=== PATIENT | female | born 1935 | race Caucasian/White ===

== ENCOUNTER → 2016-12-27 | Outpatient (CLI) | payer MEDICARE, BC ==
[~2016-12-27] MED LIST: AMBIEN 5MG TABLE5 MG PO; BENADRYL50 MG PO; CALCIUM CITRATE1 TA1 PO; CEFTIN 250250 MG/TAB PO; CYANOCOBAL1000 MCG/2 IM; DIFLUCAN 100MG100 MG PO; FLEXERIL 1010 MG/TAB PO; FLONASE NASAL S16 GM NS; FOLIC ACID 11 MG/TA1 PO; LIPITOR20 MG PO; NAPROSYN500 MG PO; NORCO 325 MG-7.1 TAB PO; OYSCO 500500 M1 PO; PLAQUENIL 200M200 MG PO; PREDNISONE20 MG PO; PRILOSEC 20MG20 MG PO; PROAIR HFA0.09 MG/AC IH; PROBIOTIC FORMU1 CAP PO; PROLIA60 MG/ML SC; RELPAX 40MG TAB40 MG PO; RT ADVAIR 528 DISKUS IH; SINGULAIR 110 MG/TAB PO; SYNTHROID0.075 MG/T PO; TOPROL XL100 MG PO; TYLENOL EXTRA500 M1 PO; ULTRAM 50MG TAB50 MG PO; ZOFRAN 4MG T4 MG/TAB PO
[2016-12-27 10:37] LABS: ADJUSTED CALCIUM 10.4 mg/dL (8.4-10.2); ALBUMIN 4.2 gm/dL (3.5-5.0); BASO # 0.1 (0.0-0.2); BASO % 0.9 % (0.0-2.0); BILIRUBIN,TOTAL 0.8 mg/dL (0.0-1.0); CALCIUM 10.6 mg/dL (8.4-10.2); CREATININE, serum 0.91 mg/dL (0.52-1.25); EOS # 0.2 (0.0-0.7); EOS % 4.4 % (0-4.0); GRAN # 3.4 (1.4-6.5); GRAN % 62.5 % (42.2-75.2); LYMPH # 1.3 (1.2-3.4); LYMPH % 23.2 % (20.0-51.0); MEAN CELL VOLUME 98 fl (80.0-100.0); MEAN CORPUSCULAR HGB CONC 32 g/dl (33.0-37.0); MEAN PLATELET VOLUME 9.8 fl (7.4-10.4); MONO # 0.5 (0.1-0.6); MONO % 8.8 % (1.7-9.3); PLATELET COUNT 203 K/mm3 (130-400); POTASSIUM 5.1 mmol/L (3.4-5.0); RED BLOOD COUNT 3.68 M/mm3 (4.10-5.30); REDCELL DISTRIBUTION WIDTH-CV 13.2 % (11.5-14.5); TOTAL PROTEIN 7.2 gm/dL (6.4-8.2); WHITE BLOOD COUNT 5.5 K/mm3 (4.8-10.8)
[2016-12-27 10:39] LABS: HEMATOCRIT 36.2 % (37.0-47.0); HEMOGLOBIN 11.7 g/dl (12.5-16.0); MEAN CORPUSCULAR HEMOGLOBIN 32 pg (27.0-31.0)
[2016-12-27 11:16] LABS: THYROID STIMULATING HORMONE 1.23 uIU/mL (0.465-4.680)
== END ==
LOC: COL.LAB 09:02
PROVIDERS: Internal Medicine
DX: D53.8 Other specified nutritional anemias (principal); E78.2 Mixed hyperlipidemia; E03.8 Other specified hypothyroidism; I10 Essential (primary) hypertension

== ENCOUNTER → 2018-01-23 | Outpatient (CLI) | payer MEDICARE, BC ==
[2018-01-23 09:25] LABS: BASO % 0.6 % (0.0-2.0); EOS # 0.2 (0.0-0.7); EOS % 2.6 % (0-4.0); GRAN # 4.7 (1.4-6.5); GRAN % 69.7 % (42.2-75.2); HEMOGLOBIN 10.9 g/dl (12.5-16.0); LYMPH # 1.2 (1.2-3.4); LYMPH % 17.3 % (20.0-51.0); MEAN CELL VOLUME 97 fl (80.0-100.0); MEAN CORPUSCULAR HEMOGLOBIN 31 pg (27.0-31.0); MEAN CORPUSCULAR HGB CONC 32 g/dl (33.0-37.0); MEAN PLATELET VOLUME 10.3 fl (7.4-10.4); MONO # 0.6 (0.1-0.6); MONO % 9.5 % (1.7-9.3); PLATELET COUNT 162 K/mm3 (130-400); RED BLOOD COUNT 3.47 M/mm3 (4.10-5.30); REDCELL DISTRIBUTION WIDTH-CV 13.2 % (11.5-14.5)
[2018-01-23 09:26] LABS: HEMATOCRIT 33.7 % (37.0-47.0)
[2018-01-23 09:38] LABS: ALBUMIN 3.6 gm/dL (3.5-5.0); BILIRUBIN,TOTAL 0.5 mg/dL (0.0-1.0); CALCIUM 10.3 mg/dL (8.4-10.2); CHOLESTEROL RISK RATIO 2.2; CREATININE, serum 0.81 mg/dL (0.52-1.25); POTASSIUM 4.6 mmol/L (3.4-5.0); TOTAL PROTEIN 7.1 gm/dL (6.4-8.2)
[2018-01-23 10:08] LABS: THYROID STIMULATING HORMONE 1.41 uIU/mL (0.465-4.680)
== END ==
LOC: COL.LAB 08:40
PROVIDERS: Internal Medicine
DX: I10 Essential (primary) hypertension (principal); E78.2 Mixed hyperlipidemia; E03.9 Hypothyroidism, unspecified

== ENCOUNTER → 2018-07-14 | Outpatient (CLI) | payer MEDICARE, BC ==
[2018-07-14 10:39] LABS: BASO # 0.1 (0.0-0.2); BASO % 0.7 % (0.0-2.0); EOS # 0.1 (0.0-0.7); EOS % 2.1 % (0-4.0); GRAN # 4.7 (1.4-6.5); GRAN % 68.5 % (42.2-75.2); HEMATOCRIT 36.1 % (37.0-47.0); HEMOGLOBIN 11.9 g/dl (12.5-16.0); LYMPH # 1.4 (1.2-3.4); LYMPH % 20.8 % (20.0-51.0); MEAN CELL VOLUME 92 fl (80.0-100.0); MEAN CORPUSCULAR HEMOGLOBIN 30 pg (27.0-31.0); MEAN CORPUSCULAR HGB CONC 33 g/dl (33.0-37.0); MEAN PLATELET VOLUME 9.4 fl (7.4-10.4); MONO # 0.5 (0.1-0.6); MONO % 7.8 % (1.7-9.3); PLATELET COUNT 200 K/mm3 (130-400); RED BLOOD COUNT 3.92 M/mm3 (4.10-5.30); REDCELL DISTRIBUTION WIDTH-CV 13.2 % (11.5-14.5)
== END ==
LOC: COL.LAB 10:12
PROVIDERS: Internal Medicine
DX: D53.9 Nutritional anemia, unspecified (principal)

== ENCOUNTER → 2018-09-24 | Outpatient (CLI) | payer MEDICARE, BC | LOC: MC.RAD 10:40 | DX: Z12.31 Encounter for screening mammogram for malignant neoplasm of breast (principal) ==

== ENCOUNTER → 2018-12-24 | Outpatient (CLI) | payer MEDICARE, BC ==
[2018-12-24 09:26] LABS: BASO # 0.1 (0.0-0.2); BASO % 0.9 % (0.0-2.0); EOS # 0.3 (0.0-0.7); EOS % 5.9 % (0-4.0); GRAN # 3.1 (1.4-6.5); GRAN % 57.4 % (42.2-75.2); HEMATOCRIT 37.1 % (37.0-47.0); HEMOGLOBIN 11.8 g/dl (12.5-16.0); LYMPH # 1.5 (1.2-3.4); LYMPH % 26.5 % (20.0-51.0); MEAN CELL VOLUME 92 fl (80.0-100.0); MEAN CORPUSCULAR HEMOGLOBIN 29 pg (27.0-31.0); MEAN CORPUSCULAR HGB CONC 32 g/dl (33.0-37.0); MONO # 0.5 (0.1-0.6); MONO % 9.1 % (1.7-9.3); PLATELET COUNT 239 K/mm3 (130-400); RED BLOOD COUNT 4.02 M/mm3 (4.10-5.30); REDCELL DISTRIBUTION WIDTH-CV 14.3 % (11.5-14.5)
[2018-12-24 10:13] LABS: ALBUMIN 3.7 gm/dL (3.5-5.0); BILIRUBIN,TOTAL 0.5 mg/dL (0.0-1.0); CALCIUM 10.5 mg/dL (8.4-10.2); CHOLESTEROL RISK RATIO 2.6; CREATININE, serum 0.82 (0.52-1.25); POTASSIUM 4.7 mmol/L (3.4-5.0); TOTAL PROTEIN 6.7 gm/dL (6.4-8.2)
[2018-12-24 10:43] LABS: THYROID STIMULATING HORMONE 1.08 uIU/mL (0.465-4.680)
== END ==
LOC: COL.LAB 08:47
PROVIDERS: Internal Medicine
DX: D53.9 Nutritional anemia, unspecified (principal); I10 Essential (primary) hypertension; E03.9 Hypothyroidism, unspecified

== ENCOUNTER 2019-06-04 21:29 | Emergency (ER) | payer MEDICARE, BC ==
[~2019-06-04] VITALS: Ht 165.1 cm; Wt 70.5 kg
[2019-06-04 21:37] VITALS: TEMP 97.9
[2019-06-04 22:10] LABS: BASO % 0.2 % (0.0-2.0); EOS % 0.4 % (0-4.0); GRAN # 6.2 (1.4-6.5); GRAN % 76.4 % (42.2-75.2); HEMOGLOBIN 11.6 g/dl (12.5-16.0); LYMPH # 1.1 (1.2-3.4); LYMPH % 13.4 % (20.0-51.0); MEAN CELL VOLUME 91 fl (80.0-100.0); MEAN CORPUSCULAR HEMOGLOBIN 30 pg (27.0-31.0); MEAN CORPUSCULAR HGB CONC 33 g/dl (33.0-37.0); MEAN PLATELET VOLUME 9.2 fl (7.4-10.4); MONO # 0.8 (0.1-0.6); MONO % 9.4 % (1.7-9.3); PLATELET COUNT 205 K/mm3 (130-400); RED BLOOD COUNT 3.87 M/mm3 (4.10-5.30); REDCELL DISTRIBUTION WIDTH-CV 14.2 % (11.5-14.5)
[2019-06-04 22:16] LABS: HEMATOCRIT 35.1 % (37.0-47.0)
[2019-06-04 22:23] LABS: ALBUMIN 4.1 gm/dL (3.5-5.0); BILIRUBIN,TOTAL 0.7 mg/dL (0.0-1.0); C-REACTIVE PROTEIN 0.8 mg/dL (0.0-0.9); CALCIUM 9.8 mg/dL (8.4-10.2); CREATININE, serum 0.71 (0.52-1.25); POTASSIUM 3.9 mmol/L (3.4-5.0); TOTAL PROTEIN 7.2 gm/dL (6.4-8.2)
[2019-06-04 22:33] LABS: TROPONIN-I 0.064 ng/mL (0.000-0.035)
[2019-06-04] MEDS ORDERED: B-121000 MCG PO (22:50)
[2019-06-04 23:17] LABS: COLLECTION METHOD CLEAN CATCH
[2019-06-04 23:33] LABS: AMORPHOUS CRYSTAL Present /uL; MUCOUS Present /lpf; PH 6 (5-8); SQUAMOUS EPITHELIAL 0-2 /hpf; URINE APPEARANCE Clear; URINE BACTERIA Rare /hpf; URINE BILIRUBIN Negative (NEGATIVE); URINE BLOOD 2+ (NEGATIVE); URINE COLOR Yellow; URINE GLUCOSE Negative (NEGATIVE); URINE KETONE 1+ (NEGATIVE); URINE LEUKOCYTE ESTERASE 3+ (NEGATIVE); URINE NITRATE Positive (NEGATIVE); URINE PROTEIN(semi-quant) Negative (NEGATIVE); URINE RBC 20-50 /hpf; URINE UROBILINOGEN Negative (NEGATIVE)
[2019-06-05 00:04] VITALS: BP 120/81; PULSE 80
== END 2019-06-05 00:30 | disposition short-term general hospital (02) ==
LOC: COL.ER 21:29
PROVIDERS: Emergency Medicine
DX: R42 Dizziness and giddiness (principal); R79.89 Other specified abnormal findings of blood chemistry; I10 Essential (primary) hypertension; E78.00 Pure hypercholesterolemia, unspecified; F03.90 Unspecified dementia, unspecified severity, without behavioral disturbance, psychotic disturbance, mood disturbance, and anxiety
CPT/HCPCS: A4216; J0696; J7030

== ENCOUNTER → 2019-06-26 | Outpatient (CLI) | payer MEDICARE, BC ==
[~2019-06-26] MED LIST changes: +B-121000 MCG PO; +CITRACAL + D CA1 TAB PO; +LOPRESSOR 550 MG/TAB PO; +MELATONIN3 M1 PO; +NORCO 325 MG-51 TAB PO; +PROLIA60 MG/ML SQ; +TYLENOL 325MG325 MG PO
[2019-06-26 15:52] LABS: COLLECTION METHOD CLEAN CATCH
[2019-06-26 16:04] LABS: PH 6 (5-8); SQUAMOUS EPITHELIAL 0-2 /hpf; URINE APPEARANCE Hazy; URINE BACTERIA Rare /hpf; URINE BILIRUBIN Negative (NEGATIVE); URINE BLOOD Negative (NEGATIVE); URINE COLOR Yellow; URINE GLUCOSE Negative (NEGATIVE); URINE KETONE Negative (NEGATIVE); URINE LEUKOCYTE ESTERASE 2+ (NEGATIVE); URINE NITRATE Negative (NEGATIVE); URINE PROTEIN(semi-quant) Negative (NEGATIVE); URINE UROBILINOGEN Negative (NEGATIVE)
== END ==
LOC: ZLAB.STJ 14:26
PROVIDERS: Internal Medicine
DX: R35.8 Other polyuria (principal)

== ENCOUNTER 2019-06-28 02:23 | Inpatient (IN) | payer MEDICARE, BC ==
[~2019-06-28] VITALS: Ht 162.6 cm; Wt 68.2 kg
[~2019-06-28 02:23] MED LIST changes: -CITRACAL + D CA1 TAB PO; -LOPRESSOR 550 MG/TAB PO; -MELATONIN3 M1 PO; -NORCO 325 MG-51 TAB PO; -PROLIA60 MG/ML SQ; -TYLENOL 325MG325 MG PO
[2019-06-28 03:27] LABS: BASO % 0.4 % (0.0-2.0); EOS # 0.1 (0.0-0.7); EOS % 0.8 % (0-4.0); GRAN # 5.2 (1.4-6.5); GRAN % 73.1 % (42.2-75.2); HEMOGLOBIN 10.6 g/dl (12.5-16.0); LYMPH # 1.1 (1.2-3.4); MEAN CELL VOLUME 94 fl (80.0-100.0); MEAN CORPUSCULAR HEMOGLOBIN 30 pg (27.0-31.0); MEAN CORPUSCULAR HGB CONC 32 g/dl (33.0-37.0); MEAN PLATELET VOLUME 9.2 fl (7.4-10.4); MONO # 0.7 (0.1-0.6); MONO % 9.4 % (1.7-9.3); PLATELET COUNT 213 K/mm3 (130-400); RED BLOOD COUNT 3.56 M/mm3 (4.10-5.30); REDCELL DISTRIBUTION WIDTH-CV 13.9 % (11.5-14.5)
[2019-06-28 03:30] LABS: HEMATOCRIT 33.3 % (37.0-47.0)
[2019-06-28 03:36] LABS: ALANINE AMINOTRANSFERASE 9 U/L (9-52); ALBUMIN 3.7 gm/dL (3.5-5.0); ALKALINE PHOSPHATASE 82 U/L (50-136); ANION GAP 8 mmol/L (7-16); AST,SGOT 17 U/L (15-37); BILIRUBIN,TOTAL 0.8 mg/dL (0.0-1.0); BLOOD UREA NITROGEN 18 mg/dL (7-17); CALCIUM 10.3 mg/dL (8.4-10.2); CARBON DIOXIDE 25 mmol/L (22-30); CHLORIDE 100 mmol/L (98-107); CREATININE, serum 0.69 (0.52-1.25); GLUCOSE 117 mg/dL (74-106); SODIUM 134 mmol/L (137-145); TOTAL PROTEIN 7.1 gm/dL (6.4-8.2)
[2019-06-28 03:48] LABS: COLLECTION METHOD CLEAN CATCH
[2019-06-28 03:48] LABS: TROPONIN-I < 0.012 ng/mL (0.000-0.035)
[2019-06-28 03:54] LABS: PH 6 (5-8); SQUAMOUS EPITHELIAL 0-2 /hpf; URINE APPEARANCE Clear; URINE BACTERIA Rare /hpf; URINE BILIRUBIN Negative (NEGATIVE); URINE BLOOD Negative (NEGATIVE); URINE COLOR Yellow; URINE GLUCOSE Negative (NEGATIVE); URINE KETONE Negative (NEGATIVE); URINE LEUKOCYTE ESTERASE Trace (NEGATIVE); URINE NITRATE Negative (NEGATIVE); URINE PROTEIN(semi-quant) Negative (NEGATIVE); URINE RBC 0-2 /hpf; URINE UROBILINOGEN Negative (NEGATIVE)
[2019-06-28] MEDS ORDERED: LOPRESSOR 550 MG/TAB PO (06:44)
[2019-06-28] MEDS ORDERED: AMBIEN 5MG TABLE5 MG PO (06:46)
[2019-06-28] MEDS ORDERED: CITRACAL + D CA1 TAB PO (06:46)
[2019-06-28] MEDS ORDERED: PROLIA60 MG/ML SQ (07:36)
[2019-06-28 07:59] VITALS: BP 138/60; PULSE 74; TEMP 98.2
[2019-06-28 12:16] VITALS: BP 150/75; PULSE 73; TEMP 98.3
[2019-06-28 16:00] VITALS: BP 156/107; PULSE 71; TEMP 98.2
--- NOTE | 2019-06-28 19:28 | NUR ---
Patient admitted at shift change this morning. 5 page intake, med rec, suicide assessment and family history completed. Patient had a lot of pain to right arm at beginning of shift. Poor pain control with Tramadol, advanced to [place] which has controlled pain very well throughout shift. Patient up to use bathroom with 1-2 assist. Bruising to right eye and right side of face. Blood cleaned out of patients nose, ears and hair. Patient has coughed up small amouts of bloody sputum likely due to the blood draining in her nose. Small dark red area noted to left buttock, patient states this is from a healing carpet burn from a fall a few weeks ago. Bed alarm on and call light in reach throughout shift.
[2019-06-28 20:00] VITALS: BP 148/58; PULSE 74; TEMP 98.1
--- NOTE | 2019-06-28 21:51 | NUR ---
PATIENT ASSISTED TO BATHROOM WITH 1:1 STAFF, VOIDS AND BACK TO BED. TAKES HS MEDS INCLUDING NORCO AT THIS TIME.
[2019-06-28 22:01] VITALS: BP 148/58; PULSE 74; TEMP 98.1
[2019-06-28 23:52] VITALS: BP 148/54; PULSE 72; TEMP 98.2
[2019-06-29] VITALS (7 sets, daily range): BP systolic 120–166; BP diastolic 65–99; PULSE 62–102; TEMP 97.3–98.4
--- NOTE | 2019-06-29 02:05 | NUR ---
ASSISTED TO BATHROOM WITH 1 ASSIST, VOIDS AND BACK TO BED. SLING IN PLACE TO RT ARM. TAKES NORCO 1 TAB AT THIS TIME FOR PAIN 03/25 TO RT ARM.
--- NOTE | 2019-06-29 06:00 | NUR ---
Takes AM meds including Owen 1 tab at this time. IVF infusing to left AC without redness or swelling.
[2019-06-29 06:35] LABS: BASO % 0.4 % (0.0-2.0); EOS # 0.1 (0.0-0.7); EOS % 2.8 % (0-4.0); GRAN # 3.1 (1.4-6.5); GRAN % 62.1 % (42.2-75.2); LYMPH # 1.2 (1.2-3.4); LYMPH % 23.3 % (20.0-51.0); MEAN CELL VOLUME 94 fl (80.0-100.0); MEAN CORPUSCULAR HGB CONC 32 g/dl (33.0-37.0); MEAN PLATELET VOLUME 9.4 fl (7.4-10.4); MONO # 0.6 (0.1-0.6); MONO % 11.2 % (1.7-9.3); PLATELET COUNT 181 K/mm3 (130-400); RED BLOOD COUNT 2.99 M/mm3 (4.10-5.30); REDCELL DISTRIBUTION WIDTH-CV 13.9 % (11.5-14.5)
[2019-06-29 06:37] LABS: HEMATOCRIT 28.2 % (37.0-47.0); MEAN CORPUSCULAR HEMOGLOBIN 30 pg (27.0-31.0)
[2019-06-29 06:46] LABS: CALCIUM 9.6 mg/dL (8.4-10.2); CREATININE, serum 0.58 (0.52-1.25); POTASSIUM 4.1 mmol/L (3.4-5.0)
--- NOTE | 2019-06-29 08:40 | NUR ---
Patient in bed resting. Alert and oriented x 3. Shift assessment complete. Right arm in sling. Denies pain at this time. Assisted patient to restroom, x 1 assist, steady gait. Denies further needs at this time.
--- NOTE | 2019-06-29 11:11 | NUR ---
DILAN met with the patient and the patient's son over speaker phone to discuss a discharge plan. The patient lives at [facility] in assisted living. The patient has a cane and a walker. The patient reports independence with ADLs before this hospitalization. The patient's PCP is Dr. Funes and patient receives medications from [facility] pharmacy. The patient does not have advanced directives in the EMR but reports they are completed and designate her son Nikolas. DILAN presented the patient choice form. The patient's son and patient discussed choices and the first choice is [facility] and second choice is [facility]. SW faxed referrals. DILAN will continue to follow to ensure safe discharge.
--- NOTE | 2019-06-29 11:15 | NUR ---
Initial visit; Patient thanked Mid Level Project Manager for looking in on her, offering God's blessings and keeping her in Mid Level Project Manager's prayers.
--- NOTE | 2019-06-29 19:00 | NUR ---
Patient has done well throughout the day. Has been up to recliner through the majority of the afternoon. Has requested medications for pain, given per orders. Denies further needs at this time. Reported off to nightclub manager.
[2019-06-30] VITALS (12 sets, daily range): BP systolic 128–171; BP diastolic 53–109; PULSE 68–89; TEMP 97.3–97.9
--- NOTE | 2019-06-30 04:21 | NUR ---
Patient has rested well this shift. Pain controlled with PRN pain medication. Patient was utilizing the walker, but was doing this was difficult for her. Changed to a reinier-walker and this was a lot more effective for the patient. Sling to right arm adjusted when patient stands to provide more support. Patient has been up several times to void this shift. 1-2 assist required for transfers and ambulation. Gait belt utilized. Will continue to monitor patient.
--- NOTE | 2019-06-30 07:00 | NUR ---
Reported on to ARCHIE Smith
[2019-06-30 07:06] LABS: BASO % 0.5 % (0.0-2.0); EOS # 0.1 (0.0-0.7); EOS % 3.2 % (0-4.0); GRAN # 2.6 (1.4-6.5); GRAN % 57.9 % (42.2-75.2); LYMPH # 1.1 (1.2-3.4); LYMPH % 25.7 % (20.0-51.0); MEAN CELL VOLUME 92 fl (80.0-100.0); MEAN CORPUSCULAR HGB CONC 32 g/dl (33.0-37.0); MEAN PLATELET VOLUME 9.5 fl (7.4-10.4); MONO # 0.5 (0.1-0.6); MONO % 12.2 % (1.7-9.3); PLATELET COUNT 190 K/mm3 (130-400); RED BLOOD COUNT 3.17 M/mm3 (4.10-5.30); REDCELL DISTRIBUTION WIDTH-CV 13.7 % (11.5-14.5)
[2019-06-30 07:15] LABS: HEMATOCRIT 29.3 % (37.0-47.0); HEMOGLOBIN 9.4 g/dl (12.5-16.0); MEAN CORPUSCULAR HEMOGLOBIN 30 pg (27.0-31.0)
--- NOTE | 2019-06-30 08:30 | NUR ---
Patient in bed resting. Son at bedside. Patient alert and oriented x 3. Assessment complete. Complained of elbow pain this am 01/23 and lower back pain 03/25. Chronic back pain per son. Medications given per orders. Right upper extremity in sling with splint in place. Patient NPO at this time. Takes meds with sips of water. Denies further needs at this time.
--- NOTE | 2019-06-30 10:00 | NUR ---
No abnormalities noted on assessment; patient changed to NPO early this morning as surgery is scheduled later on this morning, approximately 11:30; helped patient ambulate to bathroom to void; used oral swab around mouth as patient complained of dry mouth; blood pressure was taken twice this morning on patients right lower leg and elevated both times; patient c/o pain while taking BP
--- NOTE | 2019-06-30 11:28 | NUR ---
Patient down for procedure
--- NOTE | 2019-06-30 11:30 | NUR ---
Reported off to ARCHIE Smith
--- NOTE | 2019-06-30 13:16 | NUR ---
Talia from [facility] informed SW that they can accept the patient for a care home stay. DILAN informed the patient's nurse, the patient's son and to inform the patient. DILAN faxed updates to Talia at [facility]. DILAN will continue to follow.
--- NOTE | 2019-06-30 13:30 | NUR ---
Patient up from OR
[2019-06-30] MEDS ORDERED: CEFTIN 250250 MG/TAB PO (17:32)
[2019-06-30] MEDS ORDERED: TYLENOL 325MG325 MG PO (17:34)
[2019-06-30] MEDS ORDERED: MELATONIN3 M1 PO (17:35)
[2019-06-30] MEDS ORDERED: NORCO 325 MG-51 TAB PO (17:35)
[2019-06-30] MEDS ORDERED: ULTRAM 50MG TAB50 MG PO (17:35)
--- NOTE | 2019-06-30 19:04 | NUR ---
Patient has done well since arrival from OR. Post op VSS. Right arm remains in sling and splint. Patient states pain is much better. Assisted patient to restroom with hemiwalker and gait belt. Steady gait. Tolerating Diet without difficulty. Denies further needs at this time. Reported off to dog boarder.
[2019-07-01 00:58] VITALS: BP 151/103; PULSE 93; TEMP 98.4
--- NOTE | 2019-07-01 02:22 | NUR ---
Patient resting well tonight. Patient states her pain is much better today than it has been. She states she is able to move a lot better which is evidenced by her ambulating a lot better. Patient ambulates to the restroom with one assist from staff and hemiwalker. Utilizes sling to right arm. Will continue to monitor.
[2019-07-01 04:58] VITALS: BP 164/78; PULSE 88; TEMP 97.5
[2019-07-01 06:41] LABS: GRAN % 72.1 % (42.2-75.2); MEAN CELL VOLUME 92 fl (80.0-100.0); MEAN CORPUSCULAR HGB CONC 33 g/dl (33.0-37.0); MEAN PLATELET VOLUME 9.3 fl (7.4-10.4); MONO # 0.5 (0.1-0.6); MONO % 9.7 % (1.7-9.3); PLATELET COUNT 216 K/mm3 (130-400); RED BLOOD COUNT 3.08 M/mm3 (4.10-5.30); REDCELL DISTRIBUTION WIDTH-CV 13.5 % (11.5-14.5)
[2019-07-01 06:44] LABS: HEMATOCRIT 28.2 % (37.0-47.0); HEMOGLOBIN 9.3 g/dl (12.5-16.0); MEAN CORPUSCULAR HEMOGLOBIN 30 pg (27.0-31.0)
--- NOTE | 2019-07-01 07:00 | NUR ---
Reported on to ARCHIE Smith
[2019-07-01 07:03] LABS: CALCIUM 10.1 mg/dL (8.4-10.2); CREATININE, serum 0.56 (0.52-1.25); POTASSIUM 4.3 mmol/L (3.4-5.0)
[2019-07-01 07:35] VITALS: BP 185/84; PULSE 76; TEMP 97.6
--- NOTE | 2019-07-01 08:00 | NUR ---
Patient in bed resting. Alert and oriented x 3. Shift assessment complete. RUE in splint and sling. INT to left AC. States she does not have pain at this time. States she does not like BP on leg due to "cuff pumping up too much". Denies further needs at this time. Denies pain
[2019-07-01] MEDS ORDERED: NORCO 325 MG-51 TAB PO (09:29)
[2019-07-01 10:15] VITALS: BP 146/74; PULSE 67; TEMP 98.4
[2019-07-01 11:02] VITALS: BP 146/74; PULSE 67; TEMP 98.4
--- NOTE | 2019-07-01 11:06 | NUR ---
No abnormalities noted on assessment other than weakness of right arm due to surgery performed yesterday; patient complained of soreness in both calves today, and it was painful for her while taking blood pressure on lower left calf; assisted Svetlana from OT ambulate patient to bathroom and back to chair; respiration rate was slightly elevated later this morning but still within upper normal limit; patients pain was minimal and she was resting comfortably all morning; patient had splint and sling on right arm with arm resting up across her chest; patient hooked up to telemetry and had an INT
--- NOTE | 2019-07-01 11:08 | NUR ---
Social attended clinical rounds and patient will be discharged today. Patient is accepted to a skilled stay at [facility] and the facility will transfer today at 11:30 via wheel chair van. Patient signed an IM form. WOrker contacted patient's son, Nikolas, and advised of above information. Nikolas verbalized agreement with transfer plans. Worker faxed orders to [facility].
--- NOTE | 2019-07-01 11:45 | NUR ---
Assisted patient to dress and transfer to wheelchair. Patient out by wheelchair with [facility] staff. Called [facility] for report. Patient continues to deny pain or further needs at this time.
--- NOTE | 2019-07-01 11:46 | NUR ---
Reported off to ARCHIE Smith as patient was discharged
== END 2019-07-01 13:45 | DRG 493 ==
LOC: COL.ER 02:23 → SURG 05:01
PROVIDERS: Emergency Medicine; Nurse Practitioner Family; Orthopaedic Surgery; ADMIT Hospitalist
PROC: 0PSF36Z Reposition Right Humeral Shaft with Intramedullary Internal Fixation Device, Percutaneous Approach (ICD-10-PCS; principal; 2019-06-30 11:00)
DX: S42.411A Displaced simple supracondylar fracture without intercondylar fracture of right humerus, initial encounter for closed fracture (principal); S02.31XA Fracture of orbital floor, right side, initial encounter for closed fracture; S02.40CA Maxillary fracture, right side, initial encounter for closed fracture; N39.0 Urinary tract infection, site not specified; S52.121A Displaced fracture of head of right radius, initial encounter for closed fracture; M81.0 Age-related osteoporosis without current pathological fracture; F03.90 Unspecified dementia, unspecified severity, without behavioral disturbance, psychotic disturbance, mood disturbance, and anxiety; I10 Essential (primary) hypertension; E78.5 Hyperlipidemia, unspecified; K21.9 Gastro-esophageal reflux disease without esophagitis; Z66 Do not resuscitate; K44.9 Diaphragmatic hernia without obstruction or gangrene; W18.30XA Fall on same level, unspecified, initial encounter; J45.909 Unspecified asthma, uncomplicated; B96.20 Unspecified Escherichia coli [E. coli] as the cause of diseases classified elsewhere; Y92.091 Bathroom in other non-institutional residence as the place of occurrence of the external cause; Y93.89 Activity, other specified; Y99.9 Unspecified external cause status; E03.9 Hypothyroidism, unspecified; L93.0 Discoid lupus erythematosus; E83.52 Hypercalcemia; D64.9 Anemia, unspecified; Z79.891 Long term (current) use of opiate analgesic; Z85.3 Personal history of malignant neoplasm of breast; Z96.641 Presence of right artificial hip joint; Z90.710 Acquired absence of both cervix and uterus; Z91.81 History of falling
CPT/HCPCS: 99222-AI; 99232-AI; 99239; A4216; J0690; J0696; J1100; J2405; J2704; J3010; J7030; Q4050

== ENCOUNTER 2019-07-30 05:14 | Day surgery (SDC) | payer MEDICARE, BC ==
[~2019-07-30] VITALS: Ht 162.6 cm; Wt 65.9 kg
[~2019-07-30 05:14] MED LIST changes: +CITRACAL + D CA1 TAB PO; +LOPRESSOR 550 MG/TAB PO; +MELATONIN3 M1 PO; +NORCO 325 MG-51 TAB PO; +PROLIA60 MG/ML SQ; +TYLENOL 325MG325 MG PO
[2019-07-30 05:54] VITALS: BP 161/63; PULSE 68; TEMP 97.7
[2019-07-30] MEDS ORDERED: COLACE 100100 MG/CAP PO (06:31)
[2019-07-30] MEDS ORDERED: FOLIC ACID 11 MG/TA1 PO (06:31)
[2019-07-30] MEDS ORDERED: MIRALAX PA17 GM/Dose PO (06:32)
[2019-07-30] MEDS ORDERED: PRILOSEC 20MG20 MG PO (06:33)
[2019-07-30] MEDS ORDERED: SINGULAIR 110 MG/TAB PO (06:33)
[2019-07-30] MEDS ORDERED: TIROSINT75 MC1 PO (06:34)
[2019-07-30] MEDS ORDERED: B-121000 MCG PO (06:36)
[2019-07-30] MEDS ORDERED: CALCIUM CITRATE1 TA1 PO (06:37)
[2019-07-30] MEDS ORDERED: LOPRESSOR 550 MG/TAB PO (06:41)
[2019-07-30] MEDS ORDERED: DULCOLAX S10 MG/SUPP RC (06:44)
[2019-07-30] MEDS ORDERED: TYLENOL SU650 MG/SUP RC (06:44)
[2019-07-30] MEDS ORDERED: IMODIUM 2MG CAPS2 MG PO (06:45)
[2019-07-30] MEDS ORDERED: MELATONIN3 M1 PO (06:46)
[2019-07-30] MEDS ORDERED: GOOD NEIGH1200 MG/15 PO (06:46)
[2019-07-30] MEDS ORDERED: ALMACONE 360 M360 ML PO (06:47)
[2019-07-30] MEDS ORDERED: ULTRAM 50MG TAB50 MG PO ×2 (06:49→07:50)
[2019-07-30] MEDS ORDERED: TYLENOL 500MG500 MG PO (06:50)
[2019-07-30] MEDS ORDERED: TYLENOL 325MG325 MG PO (06:51)
[2019-07-30] MEDS ORDERED: VENTOLIN0.09 MG IH (06:53)
[2019-07-30 07:40] VITALS: BP 143/68; PULSE 77
--- NOTE | 2019-07-30 07:40 | NUR ---
Patient returns to room 8 per cart from surgery accompanied by Epi ISN and Aziza ALMANZA. Patient arouses to verbal stimuli. Right arm elevated on pillow with plaster splint covered with bulky clarence wrap dressing dry and intact. Fingers on the right hand warm and mobile. IV fluids infusing #20G LH. Temp 97.8. Family in room. Call light in reach and siderails up x2.
[2019-07-30 07:55] VITALS: BP 157/80; PULSE 72
--- NOTE | 2019-07-30 07:55 | NUR ---
More awake and is eating muffin and drinking juice. Denies pain or nausea. Family remains in room.
[2019-07-30 08:10] VITALS: BP 162/78; PULSE 74
--- NOTE | 2019-07-30 08:10 | NUR ---
Resting and eating muffin and drinking juice. Offers no complaints of pain or nausea.
[2019-07-30 08:25] VITALS: BP 171/74; PULSE 76
--- NOTE | 2019-07-30 08:25 | NUR ---
IV discontinued and site is free of redness or swelling. Assisted up to the bedside commode with two person assist. Patient able to void and then assisted with dressing. Dry attends placed on. Assisted into wheelchair.
--- NOTE | 2019-07-30 08:50 | NUR ---
Dismissal instructions given and patient and son both verbalize understanding of these. Provided script for Tramadol.
--- NOTE | 2019-07-30 09:00 | NUR ---
Patient taken to the front door per wheelchair and assisted into van by [facility] transportation. Son has dismissal instructions and will give them to [facility] staff.
--- NOTE | 2019-07-30 09:03 | NUR ---
Report called to Nickie Zelaya and all questions answered.
== END 2019-07-30 12:03 | disposition home or self-care (01) ==
LOC: SDCO 05:14
DX: Z47.2 Encounter for removal of internal fixation device (principal); Z91.041 Radiographic dye allergy status; D64.9 Anemia, unspecified; M81.0 Age-related osteoporosis without current pathological fracture; K21.9 Gastro-esophageal reflux disease without esophagitis; K44.9 Diaphragmatic hernia without obstruction or gangrene; I10 Essential (primary) hypertension; J45.909 Unspecified asthma, uncomplicated; F03.90 Unspecified dementia, unspecified severity, without behavioral disturbance, psychotic disturbance, mood disturbance, and anxiety
CPT/HCPCS: J2704; J3010; J7120

== ENCOUNTER 2020-09-19 11:47 | Outpatient (CLI) | payer MEDICARE ==
[~2020-09-19 11:47] MED LIST changes: +ALMACONE 360 M360 ML PO; +COLACE 100100 MG/CAP PO; +DULCOLAX S10 MG/SUPP RC; +GOOD NEIGH1200 MG/15 PO; +IMODIUM 2MG CAPS2 MG PO; +MIRALAX PA17 GM/Dose PO; +TIROSINT75 MC1 PO; +TYLENOL 500MG500 MG PO; +TYLENOL SU650 MG/SUP RC; +VENTOLIN0.09 MG IH
[2020-09-19 12:00] VITALS: BP 156/80; PULSE 78; TEMP 98.5
[2020-09-19 12:15] VITALS: BP 115/84; PULSE 72; TEMP 98.5
[2020-09-19 12:30] VITALS: BP 104/82; PULSE 78; TEMP 98.4
[2020-09-19 13:00] VITALS: BP 157/78; PULSE 78; TEMP 98.4
[2020-09-19 14:15] VITALS: BP 142/81; PULSE 78; TEMP 98.4
== END 2020-09-19 14:30 | disposition home or self-care (01) ==
LOC: EUO 11:47
DX: U07.1 COVID-19 (principal)
CPT/HCPCS: J7050

== ENCOUNTER → 2022-02-19 | Outpatient (CLI) | payer BC, MEDICARE ==
[2022-02-20 00:36] LABS: CALCIUM, IONIZED, SERUM 1.52 mmol/L (1.19-1.41)
== END ==
LOC: COL.LAB 08:59
PROVIDERS: Internal Medicine
DX: E83.52 Hypercalcemia (principal)

== ENCOUNTER → 2022-05-28 | Outpatient (CLI) | payer MEDICARE ==
[2022-05-28 10:11] LABS: CALCIUM 10.3 mg/dL (8.4-10.2); CREATININE, serum 0.8 mg/dL (0.57-1.11); POTASSIUM 4.2 mmol/L (3.5-4.5)
[2022-05-28 10:56] LABS: THYROID STIMULATING HORMONE 0.943 uIU/mL (0.350-4.940)
== END ==
LOC: COL.LAB 09:17
PROVIDERS: Internal Medicine
DX: E21.3 Hyperparathyroidism, unspecified (principal); E03.9 Hypothyroidism, unspecified

== ENCOUNTER → 2022-10-24 | Outpatient (CLI) | payer BC ==
[~2022-10-24] MED LIST changes: +CEPHALEXIN500 M1 PO
== END ==
LOC: ZCOL.LAB 15:10
DX: R52 Pain, unspecified (principal); R50.81 Fever presenting with conditions classified elsewhere

== ENCOUNTER → 2022-10-27 | Outpatient (CLI) | payer MEDICARE ==
[2022-10-27 11:15] LABS: COLLECTION METHOD CLEAN CATCH
[2022-10-27 11:38] LABS: MUCOUS Present (NOT PRESENT); SQUAMOUS EPITHELIAL 0-2 /hpf (0-10); URINE BACTERIA Many /hpf (NONE SEEN); URINE WBC >50 /hpf (0-2)
[2022-10-27 11:39] LABS: URINE APPEARANCE Cloudy (CLEAR/HAZY); URINE COLOR Yellow (YELLOW)
[2022-10-27 11:40] LABS: PH 6.5 (5.0-8.5); URINE BLOOD TRACE-INTACT (NEGATIVE); URINE GLUCOSE Negative (NEGATIVE); URINE KETONE 2+ (NEGATIVE); URINE NITRATE Negative (NEGATIVE); URINE PROTEIN(semi-quant) Negative (NEGATIVE); URINE UROBILINOGEN 0.2 E.U/dL (0.2-1.0)
== END ==
LOC: ZCOL.LAB 10:52
PROVIDERS: Internal Medicine
DX: Z87.440 Personal history of urinary (tract) infections (principal)

== ENCOUNTER 2022-10-29 11:36 | Emergency (ER) | payer MEDICARE ==
[~2022-10-29] VITALS: Ht 160 cm; Wt 64.1 kg
[~2022-10-29 11:36] MED LIST changes: -CEPHALEXIN500 M1 PO
[2022-10-29 11:42] VITALS: TEMP 97.9
[2022-10-29 12:46] LABS: COLLECTION METHOD CATHETER
[2022-10-29 12:56] LABS: PH 7.5 (5.0-8.5); URINE APPEARANCE Clear (CLEAR/HAZY); URINE BLOOD TRACE-INTACT (NEGATIVE); URINE COLOR Yellow (YELLOW); URINE GLUCOSE Negative (NEGATIVE); URINE KETONE 1+ (NEGATIVE); URINE NITRATE Positive (NEGATIVE); URINE PROTEIN(semi-quant) 1+ (NEGATIVE)
[2022-10-29 13:02] LABS: MUCOUS Present (NOT PRESENT); URINE BACTERIA Rare /hpf (NONE SEEN)
[2022-10-29] MEDS ORDERED: CEPHALEXIN500 M1 PO (13:48)
[2022-10-29 14:15] VITALS: BP 135/75; PULSE 76
== END 2022-10-29 14:40 | disposition home or self-care (01) ==
LOC: COL.ER 11:36
PROVIDERS: Emergency Medicine
DX: M25.551 Pain in right hip (principal); N30.00 Acute cystitis without hematuria; J32.9 Chronic sinusitis, unspecified; Z87.828 Personal history of other (healed) physical injury and trauma; Z96.641 Presence of right artificial hip joint; Z28.310 Unvaccinated for COVID-19; W07.XXXA Fall from chair, initial encounter; Y92.129 Unspecified place in nursing home as the place of occurrence of the external cause
CPT/HCPCS: J0696